=== PATIENT | male | born 1980 | race Two or more races ===

== ENCOUNTER → 2017-04-21 | Outpatient (CLI) | payer MEDICARE, OTHER | END | disposition home or self-care (01) | LOC: CFH 10:29 | PROVIDERS: ATTEND Family Medicine | DX: R29.898 Other symptoms and signs involving the musculoskeletal system (principal) | CPT/HCPCS: 72100 ==

== ENCOUNTER 2017-08-02 10:29 | Emergency (ER) | payer MEDICARE, OTHER ==
[~2017-08-02] VITALS: Ht 172.7 cm; Wt 119.9 kg
[2017-08-02] MEDS ORDERED: ALBUTEROL/IPRATROPIUM 2.5MG/0.5MG, 3 ML NPPB ONE (11:30)
[2017-08-02 11:44] LABS: BASOPHILS # (AUTO) 0.01 x10^3/uL (0-0.1); BASOPHILS % (AUTO) 0 % (0-1); EOSINOPHILS % (AUTO) 3 % (1-7); LYMPHOCYTES # (AUTO) 0.53 x10^3/uL (1-3.4); LYMPHOCYTES % (AUTO) 5 % (22-44); MD NO; MEAN CORPUSCULAR HEMOGLOBIN 26.9 pg (27.5-34.5); MEAN CORPUSCULAR HGB CONC 32.7 g/dL (33.2-36.2); MEAN CORPUSCULAR VOLUME 82.4 fL (81-97); MEAN PLATELET VOLUME 7.7 fL (7.4-10.4); MONOCYTES # (AUTO) 0.76 x10^3/uL (0.2-0.8); MONOCYTES % (AUTO) 7 % (2-9); NEUTROPHILS # (AUTO) 9.55 x10^3/uL (1.8-6.8); NEUTROPHILS % (AUTO) 86 % (42-75); PLATELET COUNT 314 x10^3/uL (130-400); RED BLOOD COUNT 6.13 x10^6/uL (4.38-5.82); RED CELL DISTRIBUTION WIDTH 15.9 % (9.4-14.8)
[2017-08-02 11:56] LABS: ANION GAP 4 mmol/L (5-15); CHLORIDE 106 mmol/L (98-107)
[2017-08-02 12:38] VITALS: BP 167/94
== END 2017-08-02 12:39 | disposition home or self-care (01) ==
LOC: ED 10:54
DX: H66.012 Acute suppurative otitis media with spontaneous rupture of ear drum, left ear (principal); J02.9 Acute pharyngitis, unspecified; J00 Acute nasopharyngitis [common cold]; I12.9 Hypertensive chronic kidney disease with stage 1 through stage 4 chronic kidney disease, or unspecified chronic kidney disease; N18.9 Chronic kidney disease, unspecified; Z99.2 Dependence on renal dialysis
CPT/HCPCS: 36415; 71046; 80048; 82040; 83880; 85025; 93005; 99285

== ENCOUNTER 2017-08-05 04:11 | Inpatient (IN) | payer MEDICARE, OTHER ==
[~2017-08-05] VITALS: Ht 172.7 cm; Wt 119.7 kg
[2017-08-05] MEDS ORDERED: ALBUTEROL/IPRATROPIUM 2.5MG/0.5MG, 3 ML ONE ×2 (04:43→07:44)
[2017-08-05] MEDS ORDERED: ALBUTEROL/IPRATROPIUM 2.5MG/0.5MG, 3 ML NPPB ONE ×2 (05:00→07:30)
[2017-08-05 06:35] LABS: BASOPHILS # (AUTO) 0.01 x10^3/uL (0-0.1); BASOPHILS % (AUTO) 0 % (0-1); EOSINOPHILS % (AUTO) 2 % (1-7); LYMPHOCYTES # (AUTO) 0.97 x10^3/uL (1-3.4); LYMPHOCYTES % (AUTO) 8 % (22-44); MD NO; MEAN CORPUSCULAR HEMOGLOBIN 27.4 pg (27.5-34.5); MEAN CORPUSCULAR HGB CONC 33.1 g/dL (33.2-36.2); MEAN CORPUSCULAR VOLUME 82.9 fL (81-97); MEAN PLATELET VOLUME 7.8 fL (7.4-10.4); MONOCYTES # (AUTO) 0.22 x10^3/uL (0.2-0.8); MONOCYTES % (AUTO) 2 % (2-9); NEUTROPHILS # (AUTO) 10.14 x10^3/uL (1.8-6.8); NEUTROPHILS % (AUTO) 88 % (42-75); PLATELET COUNT 302 x10^3/uL (130-400); RED BLOOD COUNT 5.82 x10^6/uL (4.38-5.82); RED CELL DISTRIBUTION WIDTH 16.1 % (9.4-14.8)
[2017-08-05] MEDS ORDERED: SODIUM CHLORIDE FLUSH 10ML SYR IVF ONE (07:30)
[2017-08-05 10:27] LABS: ANION GAP 6 mmol/L (5-15); CALCIUM 9.1 mg/dL (8.5-10.1); CHLORIDE 110 mmol/L (98-107); CREATININE 2.14 mg/dL (0.7-1.3)
[2017-08-05] MEDS ORDERED: TACR1CAP4 PO (10:43)
[2017-08-05] MEDS ORDERED: PANT40TA3 PO (10:43)
[2017-08-05] MEDS ORDERED: DOCU100C33 PO (10:43)
[2017-08-05] MEDS ORDERED: LOSA25TA5 PO (10:43)
[2017-08-05] MEDS ORDERED: MULT1TAB60 PO (10:43)
[2017-08-05] MEDS ORDERED: CHOL10002 PO (10:43)
[2017-08-05] MEDS ORDERED: FURO40TA6 PO (10:43)
[2017-08-05] MEDS ORDERED: MAGN400T7 PO (10:43)
[2017-08-05] MEDS ORDERED: PRED5TAB PO (10:43)
[2017-08-05] MEDS ORDERED: MYCO250C4 PO (10:43)
[2017-08-05] MEDS ORDERED: ASPI-496 PO (10:43)
[2017-08-05] MEDS ORDERED: CEFD300C37 PO (10:44)
[2017-08-05] MEDS ORDERED: [UNRECOGNIZED DRUG - OTHER] EACH EAR (10:47)
[2017-08-05 11:04] VITALS: BP 192/81
[2017-08-05] MEDS ORDERED: ONDANSETRON ODT 4 MG PO PRN (12:00)
[2017-08-05] MEDS ORDERED: FUROSEMIDE 40 MG TABLET PO SCH (12:00)
[2017-08-05] MEDS: HEPARIN 5,000 UNITS/ML, 1ML SQ SCH ×2 (12:00→20:00)
[2017-08-05] MEDS ORDERED: ONDANSETRON 2MG/ML, 2ML IVPush PRN (12:00)
[2017-08-05] MEDS: SODIUM CHLORIDE NASAL SPRAY 45ML BOTTLE NAS SCH ×2 (12:00→21:00)
[2017-08-05] MEDS: FLUTICASONE NASAL SPRAY 16GM NAS SCH ×2 (12:00→21:00)
[2017-08-05] MEDS ORDERED: hydrALAzine 20 MG/ML, 1ML IV PRN (12:00)
[2017-08-05] MEDS: GUAIFENESIN 200 MG TABLET PO SCH ×3 (12:00→21:05)
[2017-08-05] MEDS ORDERED: DOCUSATE 100 MG CAPSULE PO PRN (12:00)
[2017-08-05] MEDS: D5%-0.45% NACL 1,000 ML IV SCH (12:33)
[2017-08-05] MEDS: TACROLIMUS 1 MG CAPSULE PO SCH ×2 (12:35→21:05)
[2017-08-05] MEDS: ASPIRIN 81 MG TABLET EC PO SCH (12:37)
[2017-08-05] MEDS: DOCUSATE 100 MG CAPSULE PO SCH ×2 (12:37→21:00)
[2017-08-05] MEDS: LOSARTAN 25MG TABLET PO SCH (12:38)
[2017-08-05] MEDS: MULTIVITAMIN 1 TABLET PO SCH (12:38)
[2017-08-05] MEDS: CHOLECALCIFEROL 1,000 UNIT TABLET PO SCH (12:38)
[2017-08-05] MEDS: MAGNESIUM OXIDE 400 MG TABLET PO SCH ×2 (12:38→21:05)
[2017-08-05] MEDS: methylPREDNISolone SOD SUCC 40 MG/ML IV SCH ×2 (12:39→21:06)
[2017-08-05] MEDS ORDERED: PHARMACY MAY ADJ FOR RENAL FX MC PRN (13:00)
[2017-08-05] MEDS ORDERED: ALBUTEROL SULFATE 2.5 MG/3 ML ONE (13:22)
[2017-08-05 13:24] LABS: TROPONIN I < 0.015 ng/mL (0.000-0.045)
[2017-08-05] MEDS ORDERED: MAGNESIUM SULFATE PMX 4GM/100M 100 ML IV ONE (14:00)
[2017-08-05] MEDS ORDERED: ALBUTEROL SULFATE 2.5 MG/3 ML NPPB PRN (14:00)
[2017-08-05 14:30] VITALS: BP 176/84
[2017-08-05 16:44] VITALS: BP 162/90
[2017-08-05] MEDS: CEFDINIR 300 MG CAPSULE PO SCH ×2 (17:04→21:04)
[2017-08-05] MEDS ORDERED: NEOM10DR37 EACH EAR (17:30)
[2017-08-05 17:37] LABS: TROPONIN I < 0.015 ng/mL (0.000-0.045)
[2017-08-05 17:57] LABS: MICROSCOPIC NOT IND
[2017-08-05 18:04] LABS: CULTURE INDICATED? NO
[2017-08-05 19:17] VITALS: BP 151/86
[2017-08-05] MEDS ORDERED: NEO/POLY/HC EAR SUSP 10ML EACH EAR SCH (21:00)
[2017-08-05] MEDS: NEO/POLY/HC EAR SUSP 10ML EACH EAR SCH (21:00)
[2017-08-05] MEDS: PANTOPROZOLE 40MG TABLET PO SCH (21:05)
[2017-08-05] MEDS: ACETAMINOPHEN 325 MG TABLET PO PRN (21:20)
[2017-08-06] MEDS: D5%-0.45% NACL 1,000 ML IV SCH (01:02)
[2017-08-06 01:46] VITALS: BP 153/83
[2017-08-06] MEDS: ALBUTEROL/IPRATROPIUM 2.5MG/0.5MG, 3 ML HHN SCH ×3 (03:00→23:00)
[2017-08-06] MEDS: HEPARIN 5,000 UNITS/ML, 1ML SQ SCH ×3 (04:00→20:00)
[2017-08-06] MEDS: methylPREDNISolone SOD SUCC 40 MG/ML IV SCH ×3 (05:02→20:24)
[2017-08-06] MEDS: GUAIFENESIN 200 MG TABLET PO SCH ×4 (05:02→20:25)
[2017-08-06 05:30] LABS: BASOPHILS # (AUTO) 0.01 x10^3/uL (0-0.1); BASOPHILS % (AUTO) 0 % (0-1); EOSINOPHILS % (AUTO) 0 % (1-7); LYMPHOCYTES # (AUTO) 0.86 x10^3/uL (1-3.4); LYMPHOCYTES % (AUTO) 5 % (22-44); MD NO; MEAN CORPUSCULAR HEMOGLOBIN 27.6 pg (27.5-34.5); MEAN CORPUSCULAR HGB CONC 33.3 g/dL (33.2-36.2); MEAN CORPUSCULAR VOLUME 82.9 fL (81-97); MONOCYTES # (AUTO) 0.23 x10^3/uL (0.2-0.8); MONOCYTES % (AUTO) 1 % (2-9); NEUTROPHILS # (AUTO) 15.32 x10^3/uL (1.8-6.8); NEUTROPHILS % (AUTO) 93 % (42-75); PLATELET COUNT 311 x10^3/uL (130-400); RED BLOOD COUNT 5.94 x10^6/uL (4.38-5.82); RED CELL DISTRIBUTION WIDTH 15.9 % (9.4-14.8)
[2017-08-06 05:36] LABS: CHLORIDE 108 mmol/L (98-107)
[2017-08-06 05:40] LABS: ANION GAP 11 mmol/L (5-15)
[2017-08-06 07:36] VITALS: BP 154/80
[2017-08-06] MEDS: TACROLIMUS 1 MG CAPSULE PO SCH ×2 (08:47→20:26)
[2017-08-06] MEDS: ASPIRIN 81 MG TABLET EC PO SCH (08:48)
[2017-08-06] MEDS: PANTOPROZOLE 40MG TABLET PO SCH ×2 (08:48→20:25)
[2017-08-06] MEDS: CHOLECALCIFEROL 1,000 UNIT TABLET PO SCH (08:48)
[2017-08-06] MEDS: FUROSEMIDE 40 MG TABLET PO SCH (08:48)
[2017-08-06] MEDS: LOSARTAN 25MG TABLET PO SCH (08:48)
[2017-08-06] MEDS: CEFDINIR 300 MG CAPSULE PO SCH ×2 (08:48→20:26)
[2017-08-06] MEDS: NEO/POLY/HC EAR SUSP 10ML EACH EAR SCH ×2 (08:49→20:26)
[2017-08-06] MEDS: MULTIVITAMIN 1 TABLET PO SCH (08:49)
[2017-08-06] MEDS: MAGNESIUM OXIDE 400 MG TABLET PO SCH ×2 (08:49→20:26)
[2017-08-06] MEDS: FLUTICASONE NASAL SPRAY 16GM NAS SCH ×2 (08:50→21:06)
[2017-08-06] MEDS: SODIUM CHLORIDE NASAL SPRAY 45ML BOTTLE NAS SCH ×2 (08:50→21:06)
[2017-08-06] MEDS: DOCUSATE 100 MG CAPSULE PO SCH ×2 (09:03→20:26)
[2017-08-06 10:32] LABS: HEMOGLOBIN A1C 5.9 % (4.2-6.3)
[2017-08-06 13:12] VITALS: BP 176/82
[2017-08-06 19:22] VITALS: BP 159/83
[2017-08-06] MEDS ORDERED: LOSARTAN 25MG TABLET PO SCH (21:00)
[2017-08-07 02:01] VITALS: BP 154/64
[2017-08-07] MEDS: ALBUTEROL/IPRATROPIUM 2.5MG/0.5MG, 3 ML HHN SCH ×3 (03:24→21:22)
[2017-08-07] MEDS: HEPARIN 5,000 UNITS/ML, 1ML SQ SCH ×3 (04:00→20:00)
[2017-08-07] MEDS: methylPREDNISolone SOD SUCC 40 MG/ML IV SCH ×3 (05:07→21:10)
[2017-08-07] MEDS: GUAIFENESIN 200 MG TABLET PO SCH ×4 (05:08→21:00)
[2017-08-07 05:15] LABS: ANION GAP 9 mmol/L (5-15); CALCIUM 8.8 mg/dL (8.5-10.1); CHLORIDE 110 mmol/L (98-107)
[2017-08-07 05:33] LABS: MEAN CORPUSCULAR HGB CONC 32.6 g/dL (33.2-36.2); MEAN CORPUSCULAR VOLUME 82.9 fL (81-97); MEAN PLATELET VOLUME 7.8 fL (7.4-10.4); PLATELET COUNT 309 x10^3/uL (130-400); RED BLOOD COUNT 5.78 x10^6/uL (4.38-5.82); RED CELL DISTRIBUTION WIDTH 16.4 % (9.4-14.8)
[2017-08-07 06:18] LABS: BASOPHILS # (AUTO) 0.02 x10^3/uL (0-0.1); BASOPHILS % (AUTO) 0 % (0-1); EOSINOPHILS % (AUTO) 0 % (1-7); LYMPHOCYTES # (AUTO) 0.74 x10^3/uL (1-3.4); LYMPHOCYTES % (AUTO) 4 % (22-44); MD SCAN; MONOCYTES # (AUTO) 0.39 x10^3/uL (0.2-0.8); MONOCYTES % (AUTO) 2 % (2-9); NEUTROPHILS # (AUTO) 19.58 x10^3/uL (1.8-6.8); NEUTROPHILS % (AUTO) 95 % (42-75)
[2017-08-07 07:51] VITALS: BP 154/91
[2017-08-07] MEDS: MAGNESIUM OXIDE 400 MG TABLET PO SCH (08:16)
[2017-08-07] MEDS: CETIRIZINE 10 MG TABLET PO SCH (08:16)
[2017-08-07] MEDS: TACROLIMUS 1 MG CAPSULE PO SCH ×2 (08:17→21:10)
[2017-08-07] MEDS: MULTIVITAMIN 1 TABLET PO SCH (08:17)
[2017-08-07] MEDS: PANTOPROZOLE 40MG TABLET PO SCH ×2 (08:17→21:10)
[2017-08-07] MEDS: ASPIRIN 81 MG TABLET EC PO SCH (08:17)
[2017-08-07] MEDS: DOCUSATE 100 MG CAPSULE PO SCH ×2 (08:17→21:00)
[2017-08-07] MEDS: CHOLECALCIFEROL 1,000 UNIT TABLET PO SCH (08:17)
[2017-08-07] MEDS: CEFDINIR 300 MG CAPSULE PO SCH (08:17)
[2017-08-07] MEDS: FUROSEMIDE 40 MG TABLET PO SCH (08:17)
[2017-08-07] MEDS: NEO/POLY/HC EAR SUSP 10ML EACH EAR SCH ×2 (08:20→21:00)
[2017-08-07] MEDS: SODIUM CHLORIDE NASAL SPRAY 45ML BOTTLE NAS SCH ×2 (09:00→21:09)
[2017-08-07] MEDS: FLUTICASONE NASAL SPRAY 16GM NAS SCH ×2 (09:30→21:09)
[2017-08-07] MEDS ORDERED: SODIUM CHLORIDE 0.45% 1,000 ML IV SCH (10:00)
[2017-08-07] MEDS: SODIUM CHLORIDE 0.45% 1,000 ML IV SCH ×2 (11:07→20:00)
[2017-08-07 12:41] VITALS: BP 138/99
[2017-08-07 18:42] VITALS: BP 135/83
[2017-08-07] MEDS: ACETAMINOPHEN 325 MG TABLET PO PRN (21:36)
[2017-08-08] MEDS: ALBUTEROL/IPRATROPIUM 2.5MG/0.5MG, 3 ML HHN SCH ×4 (02:53→19:55)
[2017-08-08 02:56] VITALS: BP 134/87
[2017-08-08] MEDS: HEPARIN 5,000 UNITS/ML, 1ML SQ SCH ×3 (04:00→20:00)
[2017-08-08] MEDS: methylPREDNISolone SOD SUCC 40 MG/ML IV SCH ×2 (04:26→12:00)
[2017-08-08] MEDS: SODIUM CHLORIDE 0.45% 1,000 ML IV SCH (04:26)
[2017-08-08] MEDS: GUAIFENESIN 200 MG TABLET PO SCH ×4 (04:26→20:50)
[2017-08-08 07:05] VITALS: BP 142/94
[2017-08-08 07:20] LABS: MEAN CORPUSCULAR HGB CONC 32.5 g/dL (33.2-36.2); MEAN PLATELET VOLUME 7.7 fL (7.4-10.4); PLATELET COUNT 314 x10^3/uL (130-400); RED BLOOD COUNT 5.81 x10^6/uL (4.38-5.82); RED CELL DISTRIBUTION WIDTH 16.2 % (9.4-14.8)
[2017-08-08 07:31] LABS: ALBUMIN 3.6 g/dL (3.4-5.0); ANION GAP 9 mmol/L (5-15); CALCIUM 8.9 mg/dL (8.5-10.1); CHLORIDE 110 mmol/L (98-107); CREATININE 1.95 mg/dL (0.7-1.3)
[2017-08-08 07:36] LABS: BASOPHILS # (AUTO) 0.04 x10^3/uL (0-0.1); BASOPHILS % (AUTO) 0 % (0-1); EOSINOPHILS % (AUTO) 0 % (1-7); LYMPHOCYTES # (AUTO) 0.44 x10^3/uL (1-3.4); LYMPHOCYTES % (AUTO) 2 % (22-44); MD SCAN; MONOCYTES # (AUTO) 0.31 x10^3/uL (0.2-0.8); MONOCYTES % (AUTO) 2 % (2-9); NEUTROPHILS # (AUTO) 19.41 x10^3/uL (1.8-6.8); NEUTROPHILS % (AUTO) 96 % (42-75)
[2017-08-08] MEDS: NEO/POLY/HC EAR SUSP 10ML EACH EAR SCH ×3 (08:22→20:51)
[2017-08-08] MEDS: ASPIRIN 81 MG TABLET EC PO SCH (08:23)
[2017-08-08] MEDS: DOCUSATE 100 MG CAPSULE PO SCH ×2 (08:23→20:53)
[2017-08-08] MEDS: MULTIVITAMIN 1 TABLET PO SCH (08:23)
[2017-08-08] MEDS: PANTOPROZOLE 40MG TABLET PO SCH ×2 (08:24→20:53)
[2017-08-08] MEDS: CHOLECALCIFEROL 1,000 UNIT TABLET PO SCH (08:24)
[2017-08-08] MEDS: TACROLIMUS 1 MG CAPSULE PO SCH ×2 (08:24→20:53)
[2017-08-08] MEDS: CETIRIZINE 10 MG TABLET PO SCH (08:24)
[2017-08-08] MEDS: FLUTICASONE NASAL SPRAY 16GM NAS SCH (09:23)
[2017-08-08] MEDS: SODIUM CHLORIDE NASAL SPRAY 45ML BOTTLE NAS SCH (09:23)
[2017-08-08 13:49] VITALS: BP 132/98
[2017-08-08 18:39] VITALS: BP 132/83
[2017-08-09] MEDS: SODIUM CHLORIDE NASAL SPRAY 45ML BOTTLE NAS SCH ×3 (00:32→20:46)
[2017-08-09] MEDS: FLUTICASONE NASAL SPRAY 16GM NAS SCH ×3 (00:32→20:46)
[2017-08-09] MEDS: methylPREDNISolone SOD SUCC 40 MG/ML IV SCH ×2 (00:33→08:04)
[2017-08-09 01:05] VITALS: BP 124/84
[2017-08-09] MEDS: ALBUTEROL/IPRATROPIUM 2.5MG/0.5MG, 3 ML HHN SCH ×4 (02:04→20:15)
[2017-08-09] MEDS: HEPARIN 5,000 UNITS/ML, 1ML SQ SCH ×3 (03:07→20:00)
[2017-08-09] MEDS: GUAIFENESIN 200 MG TABLET PO SCH ×4 (03:07→20:40)
[2017-08-09 06:48] VITALS: BP 140/95
[2017-08-09] MEDS: FUROSEMIDE 20 MG/2 ML IV SCH (07:48)
[2017-08-09] MEDS ORDERED: FUROSEMIDE 40 MG/4 ML IV ONE (08:00)
[2017-08-09] MEDS: CHOLECALCIFEROL 1,000 UNIT TABLET PO SCH (08:07)
[2017-08-09] MEDS: CETIRIZINE 10 MG TABLET PO SCH (08:07)
[2017-08-09] MEDS: TACROLIMUS 1 MG CAPSULE PO SCH ×2 (08:07→20:41)
[2017-08-09] MEDS: DOCUSATE 100 MG CAPSULE PO SCH ×2 (08:07→20:40)
[2017-08-09] MEDS: ASPIRIN 81 MG TABLET EC PO SCH (08:07)
[2017-08-09] MEDS: MULTIVITAMIN 1 TABLET PO SCH (08:07)
[2017-08-09] MEDS: PANTOPROZOLE 40MG TABLET PO SCH ×2 (08:07→20:40)
[2017-08-09] MEDS: NEO/POLY/HC EAR SUSP 10ML EACH EAR SCH ×2 (08:08→20:47)
[2017-08-09 08:53] LABS: MEAN CORPUSCULAR HGB CONC 32.6 g/dL (33.2-36.2); MEAN CORPUSCULAR VOLUME 82.8 fL (81-97); MEAN PLATELET VOLUME 7.5 fL (7.4-10.4); PLATELET COUNT 324 x10^3/uL (130-400); RED BLOOD COUNT 6.03 x10^6/uL (4.38-5.82); RED CELL DISTRIBUTION WIDTH 16.2 % (9.4-14.8)
[2017-08-09 09:02] LABS: ANION GAP 12 mmol/L (5-15); CALCIUM 9.5 mg/dL (8.5-10.1); CHLORIDE 107 mmol/L (98-107)
[2017-08-09 09:07] LABS: BASOPHILS % (AUTO) 0 % (0-1); EOSINOPHILS % (AUTO) 0 % (1-7); LYMPHOCYTES # (AUTO) 0.47 x10^3/uL (1-3.4); LYMPHOCYTES % (AUTO) 2 % (22-44); MD SCAN; MONOCYTES % (AUTO) 3 % (2-9); NEUTROPHILS # (AUTO) 18.74 x10^3/uL (1.8-6.8); NEUTROPHILS % (AUTO) 95 % (42-75)
[2017-08-09] MEDS ORDERED: MAGNESIUM SULFATE PMX 4GM/100M 100 ML IV ONE (11:00)
[2017-08-09] MEDS ORDERED: SODIUM PHOSPHATE 4 MEQ/ML IV SCH (11:30)
[2017-08-09] MEDS ORDERED: SODIUM PHOSPHATE 30 MMOL in SODIUM CHLORIDE 0.9% 500 ML IV ONE (12:00)
[2017-08-09] MEDS ORDERED: FUROSEMIDE 20 MG/2 ML IV ONE (17:00)
[2017-08-09 18:10] VITALS: BP 134/89
[2017-08-09 18:51] VITALS: BP 127/90
[2017-08-10] MEDS: methylPREDNISolone SOD SUCC 40 MG/ML IV SCH ×4 (00:34→23:38)
[2017-08-10 01:06] VITALS: BP 126/88
[2017-08-10] MEDS: HEPARIN 5,000 UNITS/ML, 1ML SQ SCH ×3 (03:04→20:00)
[2017-08-10] MEDS: ALBUTEROL/IPRATROPIUM 2.5MG/0.5MG, 3 ML HHN SCH ×4 (03:30→20:20)
[2017-08-10] MEDS: GUAIFENESIN 200 MG TABLET PO SCH ×4 (05:57→20:39)
[2017-08-10 07:33] VITALS: BP 138/88
[2017-08-10] MEDS: NEO/POLY/HC EAR SUSP 10ML EACH EAR SCH ×2 (09:00→20:39)
[2017-08-10] MEDS: FUROSEMIDE 20 MG/2 ML IV SCH (10:05)
[2017-08-10] MEDS: TACROLIMUS 1 MG CAPSULE PO SCH ×2 (10:08→20:40)
[2017-08-10] MEDS: CHOLECALCIFEROL 1,000 UNIT TABLET PO SCH (10:08)
[2017-08-10] MEDS: PANTOPROZOLE 40MG TABLET PO SCH ×2 (10:08→20:40)
[2017-08-10] MEDS: MULTIVITAMIN 1 TABLET PO SCH (10:08)
[2017-08-10] MEDS: DOCUSATE 100 MG CAPSULE PO SCH ×2 (10:08→20:39)
[2017-08-10] MEDS: CETIRIZINE 10 MG TABLET PO SCH (10:08)
[2017-08-10] MEDS: SODIUM CHLORIDE NASAL SPRAY 45ML BOTTLE NAS SCH ×2 (10:09→20:39)
[2017-08-10] MEDS: ASPIRIN 81 MG TABLET EC PO SCH (10:09)
[2017-08-10] MEDS: FLUTICASONE NASAL SPRAY 16GM NAS SCH ×2 (10:09→20:38)
[2017-08-10 13:57] VITALS: BP 128/87
[2017-08-10 19:49] VITALS: BP 116/83
[2017-08-10] MEDS: LOSARTAN 25MG TABLET PO SCH (21:50)
[2017-08-11 02:00] VITALS: BP 109/68
[2017-08-11] MEDS: ALBUTEROL/IPRATROPIUM 2.5MG/0.5MG, 3 ML HHN SCH ×4 (02:37→20:49)
[2017-08-11] MEDS: HEPARIN 5,000 UNITS/ML, 1ML SQ SCH ×3 (03:43→20:00)
[2017-08-11 05:06] LABS: MEAN CORPUSCULAR HEMOGLOBIN 27.1 pg (27.5-34.5); MEAN CORPUSCULAR HGB CONC 32.7 g/dL (33.2-36.2); MEAN CORPUSCULAR VOLUME 83.1 fL (81-97); MEAN PLATELET VOLUME 7.6 fL (7.4-10.4); PLATELET COUNT 300 x10^3/uL (130-400); RED BLOOD COUNT 5.93 x10^6/uL (4.38-5.82); RED CELL DISTRIBUTION WIDTH 16.5 % (9.4-14.8)
[2017-08-11 05:07] LABS: ALBUMIN 3.5 g/dL (3.4-5.0); ANION GAP 10 mmol/L (5-15); CALCIUM 7.9 mg/dL (8.5-10.1); CHLORIDE 107 mmol/L (98-107); CREATININE 1.95 mg/dL (0.7-1.3)
[2017-08-11] MEDS: GUAIFENESIN 200 MG TABLET PO SCH ×4 (05:19→21:07)
[2017-08-11 05:48] LABS: BASOPHILS # (AUTO) 0.05 x10^3/uL (0-0.1); BASOPHILS % (AUTO) 0 % (0-1); EOSINOPHILS % (AUTO) 0 % (1-7); LYMPHOCYTES # (AUTO) 0.47 x10^3/uL (1-3.4); LYMPHOCYTES % (AUTO) 3 % (22-44); MD SCAN; MONOCYTES % (AUTO) 3 % (2-9); NEUTROPHILS # (AUTO) 15.14 x10^3/uL (1.8-6.8); NEUTROPHILS % (AUTO) 94 % (42-75)
[2017-08-11 07:26] VITALS: BP 120/81
[2017-08-11] MEDS ORDERED: SODIUM PHOSPHATE 4 MEQ/ML IV SCH (07:30)
[2017-08-11] MEDS ORDERED: SODIUM PHOSPHATE 30 MMOL in SODIUM CHLORIDE 0.9% 500 ML IV ONE (07:30)
[2017-08-11] MEDS: ASPIRIN 81 MG TABLET EC PO SCH (10:56)
[2017-08-11] MEDS: TACROLIMUS 1 MG CAPSULE PO SCH ×2 (10:56→21:08)
[2017-08-11] MEDS: CHOLECALCIFEROL 1,000 UNIT TABLET PO SCH (10:57)
[2017-08-11] MEDS: DOCUSATE 100 MG CAPSULE PO SCH ×2 (10:57→21:08)
[2017-08-11] MEDS: CETIRIZINE 10 MG TABLET PO SCH (10:57)
[2017-08-11] MEDS: LOSARTAN 25MG TABLET PO SCH (10:58)
[2017-08-11] MEDS: MULTIVITAMIN 1 TABLET PO SCH (10:58)
[2017-08-11] MEDS: PANTOPROZOLE 40MG TABLET PO SCH ×2 (10:58→21:08)
[2017-08-11] MEDS: FLUTICASONE NASAL SPRAY 16GM NAS SCH ×2 (10:59→21:07)
[2017-08-11] MEDS: SODIUM CHLORIDE NASAL SPRAY 45ML BOTTLE NAS SCH ×2 (10:59→21:06)
[2017-08-11] MEDS: NEO/POLY/HC EAR SUSP 10ML EACH EAR SCH ×2 (11:00→21:00)
[2017-08-11] MEDS: methylPREDNISolone SOD SUCC 40 MG/ML IV SCH ×2 (11:33→23:35)
[2017-08-11 13:37] VITALS: BP 120/86
[2017-08-11 19:29] VITALS: BP 120/77
[2017-08-12 02:29] VITALS: BP 127/86
[2017-08-12] MEDS: ALBUTEROL/IPRATROPIUM 2.5MG/0.5MG, 3 ML HHN SCH ×4 (02:47→21:35)
[2017-08-12] MEDS: HEPARIN 5,000 UNITS/ML, 1ML SQ SCH ×3 (04:00→20:00)
[2017-08-12] MEDS: GUAIFENESIN 200 MG TABLET PO SCH ×4 (05:42→22:16)
[2017-08-12 08:00] VITALS: BP 125/84
[2017-08-12] MEDS: FUROSEMIDE 40 MG/4 ML IV SCH (08:58)
[2017-08-12] MEDS: ASPIRIN 81 MG TABLET EC PO SCH (08:59)
[2017-08-12] MEDS: PANTOPROZOLE 40MG TABLET PO SCH ×2 (08:59→22:16)
[2017-08-12] MEDS: TACROLIMUS 1 MG CAPSULE PO SCH ×2 (08:59→22:16)
[2017-08-12] MEDS: MULTIVITAMIN 1 TABLET PO SCH (08:59)
[2017-08-12] MEDS: CETIRIZINE 10 MG TABLET PO SCH (08:59)
[2017-08-12] MEDS: DOCUSATE 100 MG CAPSULE PO SCH ×2 (09:00→22:16)
[2017-08-12] MEDS: CHOLECALCIFEROL 1,000 UNIT TABLET PO SCH (09:00)
[2017-08-12] MEDS: NEO/POLY/HC EAR SUSP 10ML EACH EAR SCH ×3 (09:00→22:17)
[2017-08-12] MEDS: LOSARTAN 25MG TABLET PO SCH (09:00)
[2017-08-12] MEDS: FLUTICASONE NASAL SPRAY 16GM NAS SCH ×2 (09:01→22:16)
[2017-08-12] MEDS: SODIUM CHLORIDE NASAL SPRAY 45ML BOTTLE NAS SCH ×2 (09:01→22:17)
[2017-08-12 09:08] LABS: MEAN CORPUSCULAR HEMOGLOBIN 27.2 pg (27.5-34.5); MEAN CORPUSCULAR HGB CONC 32.7 g/dL (33.2-36.2); MEAN CORPUSCULAR VOLUME 83.2 fL (81-97); MEAN PLATELET VOLUME 7.2 fL (7.4-10.4); PLATELET COUNT 275 x10^3/uL (130-400); RED BLOOD COUNT 5.85 x10^6/uL (4.38-5.82); RED CELL DISTRIBUTION WIDTH 16.8 % (9.4-14.8)
[2017-08-12 09:18] LABS: ALBUMIN 3.5 g/dL (3.4-5.0); ANION GAP 10 mmol/L (5-15); CALCIUM 7.9 mg/dL (8.5-10.1); CHLORIDE 104 mmol/L (98-107); CREATININE 2.01 mg/dL (0.7-1.3)
[2017-08-12 09:44] LABS: MD YES
[2017-08-12 09:47] LABS: <PLATELET ESTIMATE> ADEQUATE; <PLT MORPHOLOGY> NORMAL PLT MORPH; <RBC MORPHOLOGY> NORMAL; LYMPH#(MANUAL) 2.46 x10^3/uL (1-3.4); LYMPHS% (MANUAL) 14 % (22-44); METAMYELOCYTES# (MANUAL) 0.35 x10^3/uL (0-0); METAMYELOCYTES% (MANUAL) 2 % (0-1); MONOS#(MANUAL) 0.35 x10^3/uL (0.3-2.7); MONOS% (MANUAL) 2 % (2-9); SEG#(MANUAL) 14.43 x10^3/uL (1.8-6.8); SEGS% (MANUAL) 82 % (42-75)
[2017-08-12] MEDS: methylPREDNISolone SOD SUCC 40 MG/ML IV SCH (13:40)
[2017-08-12 14:00] VITALS: BP 107/73
[2017-08-12 20:23] VITALS: BP 114/79
[2017-08-13] MEDS: ACETAMINOPHEN 325 MG TABLET PO PRN (00:38)
[2017-08-13] MEDS: methylPREDNISolone SOD SUCC 40 MG/ML IV SCH ×2 (00:38→11:43)
[2017-08-13 01:56] VITALS: BP 122/79
[2017-08-13] MEDS: ALBUTEROL/IPRATROPIUM 2.5MG/0.5MG, 3 ML HHN SCH ×5 (03:00→21:12)
[2017-08-13] MEDS: HEPARIN 5,000 UNITS/ML, 1ML SQ SCH ×3 (04:00→20:00)
[2017-08-13] MEDS: GUAIFENESIN 200 MG TABLET PO SCH ×5 (06:36→22:29)
[2017-08-13 08:18] VITALS: BP 141/89
[2017-08-13] MEDS: FLUTICASONE NASAL SPRAY 16GM NAS SCH ×2 (08:34→22:27)
[2017-08-13] MEDS: FUROSEMIDE 40 MG/4 ML IV SCH (08:34)
[2017-08-13] MEDS: NEO/POLY/HC EAR SUSP 10ML EACH EAR SCH ×2 (08:34→21:00)
[2017-08-13] MEDS: SODIUM CHLORIDE NASAL SPRAY 45ML BOTTLE NAS SCH ×2 (08:34→22:27)
[2017-08-13] MEDS: LOSARTAN 25MG TABLET PO SCH (08:35)
[2017-08-13] MEDS: CHOLECALCIFEROL 1,000 UNIT TABLET PO SCH (08:35)
[2017-08-13] MEDS: TACROLIMUS 1 MG CAPSULE PO SCH ×2 (08:35→22:28)
[2017-08-13] MEDS: MULTIVITAMIN 1 TABLET PO SCH (08:35)
[2017-08-13] MEDS: ASPIRIN 81 MG TABLET EC PO SCH (08:35)
[2017-08-13] MEDS: PANTOPROZOLE 40MG TABLET PO SCH ×2 (08:35→22:28)
[2017-08-13] MEDS: DOCUSATE 100 MG CAPSULE PO SCH ×2 (08:35→22:28)
[2017-08-13] MEDS: CETIRIZINE 10 MG TABLET PO SCH (08:35)
[2017-08-13 11:10] LABS: MEAN CORPUSCULAR HEMOGLOBIN 26.9 pg (27.5-34.5); MEAN CORPUSCULAR HGB CONC 32.3 g/dL (33.2-36.2); MEAN CORPUSCULAR VOLUME 83.4 fL (81-97); MEAN PLATELET VOLUME 7.5 fL (7.4-10.4); PLATELET COUNT 273 x10^3/uL (130-400); RED CELL DISTRIBUTION WIDTH 16.8 % (9.4-14.8)
[2017-08-13 11:19] LABS: ALBUMIN 3.7 g/dL (3.4-5.0); ANION GAP 10 mmol/L (5-15); CALCIUM 8.6 mg/dL (8.5-10.1); CHLORIDE 103 mmol/L (98-107); CREATININE 1.96 mg/dL (0.7-1.3)
[2017-08-13 11:58] LABS: MD YES
[2017-08-13 12:07] LABS: BAND#(MANUAL) 0.76 x10^3/uL; BANDS%(MANUAL) 4 % (0-7); LYMPH#(MANUAL) 0.95 x10^3/uL (1-3.4); LYMPHS% (MANUAL) 5 % (22-44); MONOS#(MANUAL) 0.38 x10^3/uL (0.3-2.7); MONOS% (MANUAL) 2 % (2-9)
[2017-08-13 12:08] LABS: <PLATELET ESTIMATE> ADEQUATE; <PLT MORPHOLOGY> NORMAL PLT MORPH; <RBC MORPHOLOGY> NORMAL; METAMYELOCYTES# (MANUAL) 0.19 x10^3/uL (0-0); METAMYELOCYTES% (MANUAL) 1 % (0-1); SEG#(MANUAL) 16.63 x10^3/uL (1.8-6.8); SEGS% (MANUAL) 88 % (42-75)
[2017-08-13 12:49] VITALS: BP 112/80
[2017-08-13 20:06] VITALS: BP 130/91
[2017-08-14] MEDS: methylPREDNISolone SOD SUCC 40 MG/ML IV SCH ×2 (01:35→11:19)
[2017-08-14 02:08] VITALS: BP 129/88
[2017-08-14] MEDS: ALBUTEROL/IPRATROPIUM 2.5MG/0.5MG, 3 ML HHN SCH ×3 (03:00→21:21)
[2017-08-14] MEDS: HEPARIN 5,000 UNITS/ML, 1ML SQ SCH ×3 (04:00→20:00)
[2017-08-14] MEDS: GUAIFENESIN 200 MG TABLET PO SCH ×4 (06:07→22:01)
[2017-08-14] MEDS: NEO/POLY/HC EAR SUSP 10ML EACH EAR SCH ×2 (07:25→21:00)
[2017-08-14] MEDS: FUROSEMIDE 40 MG/4 ML IV SCH (07:57)
[2017-08-14] MEDS: FLUTICASONE NASAL SPRAY 16GM NAS SCH ×2 (07:57→22:02)
[2017-08-14] MEDS: LOSARTAN 25MG TABLET PO SCH (07:57)
[2017-08-14] MEDS: MULTIVITAMIN 1 TABLET PO SCH (07:58)
[2017-08-14] MEDS: SODIUM CHLORIDE NASAL SPRAY 45ML BOTTLE NAS SCH ×2 (07:58→22:02)
[2017-08-14] MEDS: CHOLECALCIFEROL 1,000 UNIT TABLET PO SCH (07:58)
[2017-08-14] MEDS: TACROLIMUS 1 MG CAPSULE PO SCH ×2 (07:58→22:01)
[2017-08-14] MEDS: CETIRIZINE 10 MG TABLET PO SCH (07:58)
[2017-08-14] MEDS: ASPIRIN 81 MG TABLET EC PO SCH (07:58)
[2017-08-14] MEDS: DOCUSATE 100 MG CAPSULE PO SCH ×2 (07:58→22:00)
[2017-08-14] MEDS: PANTOPROZOLE 40MG TABLET PO SCH ×2 (07:58→22:01)
[2017-08-14 08:47] LABS: MEAN CORPUSCULAR HGB CONC 32.4 g/dL (33.2-36.2); MEAN CORPUSCULAR VOLUME 83.4 fL (81-97); MEAN PLATELET VOLUME 7.5 fL (7.4-10.4); PLATELET COUNT 281 x10^3/uL (130-400); RED BLOOD COUNT 6.24 x10^6/uL (4.38-5.82); RED CELL DISTRIBUTION WIDTH 16.7 % (9.4-14.8)
[2017-08-14 08:55] LABS: ALBUMIN 3.8 g/dL (3.4-5.0); ANION GAP 9 mmol/L (5-15); CALCIUM 8.5 mg/dL (8.5-10.1); CHLORIDE 103 mmol/L (98-107)
[2017-08-14 10:00] VITALS: BP 116/82
[2017-08-14 10:19] LABS: BASOPHILS # (AUTO) 0.06 x10^3/uL (0-0.1); BASOPHILS % (AUTO) 0 % (0-1); EOSINOPHILS # (AUTO) 0.01 x10^3/uL (0-0.4); EOSINOPHILS % (AUTO) 0 % (1-7); LYMPHOCYTES # (AUTO) 0.47 x10^3/uL (1-3.4); LYMPHOCYTES % (AUTO) 2 % (22-44); MD SCAN; MONOCYTES # (AUTO) 0.16 x10^3/uL (0.2-0.8); MONOCYTES % (AUTO) 1 % (2-9); NEUTROPHILS # (AUTO) 19.29 x10^3/uL (1.8-6.8); NEUTROPHILS % (AUTO) 97 % (42-75)
[2017-08-14 14:50] VITALS: BP 145/87
[2017-08-14 19:50] VITALS: BP 152/89
[2017-08-15] MEDS: HEPARIN 5,000 UNITS/ML, 1ML SQ SCH ×3 (01:36→20:00)
[2017-08-15] MEDS: ACETAMINOPHEN 325 MG TABLET PO PRN (01:38)
[2017-08-15 02:14] VITALS: BP 149/82
[2017-08-15 04:57] LABS: MEAN CORPUSCULAR HEMOGLOBIN 27.4 pg (27.5-34.5); MEAN CORPUSCULAR HGB CONC 32.6 g/dL (33.2-36.2); MEAN PLATELET VOLUME 7.6 fL (7.4-10.4); PLATELET COUNT 259 x10^3/uL (130-400); RED BLOOD COUNT 5.97 x10^6/uL (4.38-5.82); RED CELL DISTRIBUTION WIDTH 16.8 % (9.4-14.8)
[2017-08-15 05:09] LABS: ALBUMIN 3.3 g/dL (3.4-5.0); ANION GAP 9 mmol/L (5-15); CALCIUM 8.9 mg/dL (8.5-10.1); CHLORIDE 106 mmol/L (98-107); CREATININE 1.92 mg/dL (0.7-1.3)
[2017-08-15] MEDS: GUAIFENESIN 200 MG TABLET PO SCH ×4 (06:14→21:16)
[2017-08-15 06:16] LABS: BASOPHILS # (AUTO) 0.03 x10^3/uL (0-0.1); BASOPHILS % (AUTO) 0 % (0-1); EOSINOPHILS % (AUTO) 0 % (1-7); LYMPHOCYTES # (AUTO) 0.47 x10^3/uL (1-3.4); LYMPHOCYTES % (AUTO) 2 % (22-44); MD SCAN; MONOCYTES # (AUTO) 0.59 x10^3/uL (0.2-0.8); MONOCYTES % (AUTO) 3 % (2-9); NEUTROPHILS # (AUTO) 21.73 x10^3/uL (1.8-6.8); NEUTROPHILS % (AUTO) 95 % (42-75)
[2017-08-15 07:40] VITALS: BP 145/94
[2017-08-15] MEDS: FUROSEMIDE 40 MG/4 ML IV SCH (08:30)
[2017-08-15] MEDS: ASPIRIN 81 MG TABLET EC PO SCH (08:31)
[2017-08-15] MEDS: TACROLIMUS 1 MG CAPSULE PO SCH ×2 (08:31→21:16)
[2017-08-15] MEDS: LOSARTAN 25MG TABLET PO SCH (08:31)
[2017-08-15] MEDS: PANTOPROZOLE 40MG TABLET PO SCH ×2 (08:31→21:16)
[2017-08-15] MEDS: CETIRIZINE 10 MG TABLET PO SCH (08:31)
[2017-08-15] MEDS: CHOLECALCIFEROL 1,000 UNIT TABLET PO SCH (08:31)
[2017-08-15] MEDS: MULTIVITAMIN 1 TABLET PO SCH (08:32)
[2017-08-15] MEDS: DOCUSATE 100 MG CAPSULE PO SCH ×2 (08:32→21:16)
[2017-08-15] MEDS: NEO/POLY/HC EAR SUSP 10ML EACH EAR SCH ×2 (08:35→21:00)
[2017-08-15] MEDS: FLUTICASONE NASAL SPRAY 16GM NAS SCH ×2 (08:37→21:15)
[2017-08-15] MEDS: SODIUM CHLORIDE NASAL SPRAY 45ML BOTTLE NAS SCH ×2 (08:37→21:17)
[2017-08-15] MEDS: ALBUTEROL/IPRATROPIUM 2.5MG/0.5MG, 3 ML HHN SCH ×2 (10:40→20:40)
[2017-08-15 12:32] VITALS: BP 141/79
[2017-08-15 20:41] VITALS: BP 148/96
[2017-08-16 02:31] VITALS: BP 146/88
[2017-08-16] MEDS: ALBUTEROL/IPRATROPIUM 2.5MG/0.5MG, 3 ML HHN SCH ×4 (03:50→20:04)
[2017-08-16] MEDS: HEPARIN 5,000 UNITS/ML, 1ML SQ SCH ×3 (04:00→20:23)
[2017-08-16] MEDS: ACETAMINOPHEN 325 MG TABLET PO PRN (04:13)
[2017-08-16] MEDS: GUAIFENESIN 200 MG TABLET PO SCH ×5 (05:23→20:39)
[2017-08-16 05:34] LABS: ANION GAP 8 mmol/L (5-15); BASOPHILS # (AUTO) 0.01 x10^3/uL (0-0.1); BASOPHILS % (AUTO) 0 % (0-1); CALCIUM 8.6 mg/dL (8.5-10.1); CHLORIDE 107 mmol/L (98-107); CREATININE 1.61 mg/dL (0.7-1.3); EOSINOPHILS # (AUTO) 0.02 x10^3/uL (0-0.4); EOSINOPHILS % (AUTO) 0 % (1-7); LYMPHOCYTES # (AUTO) 1.22 x10^3/uL (1-3.4); LYMPHOCYTES % (AUTO) 7 % (22-44); MD NO; MEAN CORPUSCULAR HEMOGLOBIN 27.4 pg (27.5-34.5); MEAN CORPUSCULAR HGB CONC 32.4 g/dL (33.2-36.2); MEAN CORPUSCULAR VOLUME 84.5 fL (81-97); MEAN PLATELET VOLUME 7.8 fL (7.4-10.4); MONOCYTES # (AUTO) 1.12 x10^3/uL (0.2-0.8); MONOCYTES % (AUTO) 7 % (2-9); NEUTROPHILS % (AUTO) 86 % (42-75); PLATELET COUNT 239 x10^3/uL (130-400); RED BLOOD COUNT 5.53 x10^6/uL (4.38-5.82); RED CELL DISTRIBUTION WIDTH 16.7 % (9.4-14.8)
[2017-08-16 07:39] VITALS: BP 145/90
[2017-08-16] MEDS ORDERED: MAGNESIUM SULFATE PMX 2GM/50ML 50 ML IV ONE (08:00)
[2017-08-16] MEDS: CHOLECALCIFEROL 1,000 UNIT TABLET PO SCH (08:22)
[2017-08-16] MEDS: PANTOPROZOLE 40MG TABLET PO SCH (08:22)
[2017-08-16] MEDS: ASPIRIN 81 MG TABLET EC PO SCH (08:22)
[2017-08-16] MEDS: CETIRIZINE 10 MG TABLET PO SCH (08:22)
[2017-08-16] MEDS: FUROSEMIDE 40 MG/4 ML IV SCH (08:22)
[2017-08-16] MEDS: LOSARTAN 25MG TABLET PO SCH (08:22)
[2017-08-16] MEDS: NEO/POLY/HC EAR SUSP 10ML EACH EAR SCH ×2 (08:23→20:37)
[2017-08-16] MEDS: TACROLIMUS 1 MG CAPSULE PO SCH ×2 (08:23→09:00)
[2017-08-16] MEDS: MULTIVITAMIN 1 TABLET PO SCH (08:23)
[2017-08-16] MEDS: SODIUM CHLORIDE NASAL SPRAY 45ML BOTTLE NAS SCH ×2 (08:23→20:38)
[2017-08-16] MEDS: DOCUSATE 100 MG CAPSULE PO SCH ×2 (08:24→20:41)
[2017-08-16] MEDS: FLUTICASONE NASAL SPRAY 16GM NAS SCH ×2 (08:24→20:38)
[2017-08-16 14:03] VITALS: BP 121/75
[2017-08-16 20:00] VITALS: BP 127/86
[2017-08-16] MEDS ORDERED: TACROLIMUS 0.5 MG CAPSULE PO SCH (21:00)
[2017-08-17 02:00] VITALS: BP 146/89
[2017-08-17] MEDS: ALBUTEROL/IPRATROPIUM 2.5MG/0.5MG, 3 ML HHN SCH ×2 (02:35→08:51)
[2017-08-17] MEDS: HEPARIN 5,000 UNITS/ML, 1ML SQ SCH ×2 (03:04→10:27)
[2017-08-17] MEDS: GUAIFENESIN 200 MG TABLET PO SCH ×2 (05:21→10:21)
[2017-08-17 07:32] VITALS: BP 163/93
[2017-08-17 07:34] LABS: MEAN CORPUSCULAR HGB CONC 32.4 g/dL (33.2-36.2); MEAN CORPUSCULAR VOLUME 83.5 fL (81-97); MEAN PLATELET VOLUME 7.3 fL (7.4-10.4); PLATELET COUNT 230 x10^3/uL (130-400); RED BLOOD COUNT 5.49 x10^6/uL (4.38-5.82); RED CELL DISTRIBUTION WIDTH 16.7 % (9.4-14.8)
[2017-08-17 07:45] LABS: ALBUMIN 3.1 g/dL (3.4-5.0); ANION GAP 7 mmol/L (5-15); CALCIUM 8.7 mg/dL (8.5-10.1); CHLORIDE 107 mmol/L (98-107); CREATININE 1.64 mg/dL (0.7-1.3)
[2017-08-17] MEDS ORDERED: TACR0.5C4 PO (07:49)
[2017-08-17] MEDS ORDERED: TACR1CAP4 PO (07:49)
[2017-08-17] MEDS ORDERED: PRED10TA PO (07:49)
[2017-08-17 08:09] LABS: MD YES
[2017-08-17 08:10] LABS: EOS#(MANUAL) 0.36 x10^3/uL (0.0-0.4); EOS% (MANUAL) 2 % (1-7); LYMPH#(MANUAL) 0.54 x10^3/uL (1-3.4); LYMPHS% (MANUAL) 3 % (22-44); MONOS#(MANUAL) 0.54 x10^3/uL (0.3-2.7); MONOS% (MANUAL) 3 % (2-9); MYELOCYTES# (MANUAL) 0.18 x10^3/uL (0-0); MYELOCYTES% (MANUAL) 1 % (0-0); SEG#(MANUAL) 16.47 x10^3/uL (1.8-6.8); SEGS% (MANUAL) 91 % (42-75)
[2017-08-17 08:11] LABS: <RBC MORPHOLOGY> NORMAL
[2017-08-17 08:13] LABS: <PLATELET ESTIMATE> ADEQUATE; <PLT MORPHOLOGY> NORMAL PLT MORPH
[2017-08-17] MEDS: NEO/POLY/HC EAR SUSP 10ML EACH EAR SCH ×2 (09:00→10:15)
[2017-08-17] MEDS ORDERED: PANTOPROZOLE 40MG TABLET PO SCH (09:00)
[2017-08-17] MEDS: MULTIVITAMIN 1 TABLET PO SCH (10:14)
[2017-08-17] MEDS: TACROLIMUS 1 MG CAPSULE PO SCH (10:14)
[2017-08-17] MEDS: CHOLECALCIFEROL 1,000 UNIT TABLET PO SCH (10:14)
[2017-08-17] MEDS: CETIRIZINE 10 MG TABLET PO SCH (10:15)
[2017-08-17] MEDS: LOSARTAN 25MG TABLET PO SCH (10:15)
[2017-08-17] MEDS: SODIUM CHLORIDE NASAL SPRAY 45ML BOTTLE NAS SCH (10:15)
[2017-08-17] MEDS: DOCUSATE 100 MG CAPSULE PO SCH (10:15)
[2017-08-17] MEDS: FLUTICASONE NASAL SPRAY 16GM NAS SCH (10:15)
[2017-08-17] MEDS: FUROSEMIDE 40 MG/4 ML IV SCH (10:16)
[2017-08-17] MEDS: ASPIRIN 81 MG TABLET EC PO SCH (10:26)
[2017-08-17 13:06] VITALS: BP 123/74
== END 2017-08-17 15:30 | disposition home or self-care (01) | DRG 189 ==
LOC: ED 07:34 → EDIP 09:40 → 3NE 10:59 → 4WST 14:21 → CCU 08-09 09:21 → 4WST 08-09 17:48 → DCLOUNGE 08-17 15:10
PROVIDERS: ADMIT Internal Medicine; ATTEND Internal Medicine
PROC: 4A09X5Z Measurement of Respiratory Flow, External Approach (ICD-10-PCS; principal; 2017-08-08)
PROC: 4A0 Measurement and Monitoring, Physiological Systems, Measurement (ICD-10-PCS; 2017-08-08)
PROC: 5A09357 Assistance with Respiratory Ventilation, Less than 24 Consecutive Hours, Continuous Positive Airway Pressure (ICD-10-PCS; 2017-08-11)
DX: J96.01 Acute respiratory failure with hypoxia (principal); J38.6 Stenosis of larynx; Z93.0 Tracheostomy status; I13.11 Hypertensive heart and chronic kidney disease without heart failure, with stage 5 chronic kidney disease, or end stage renal disease; E66.01 Morbid (severe) obesity due to excess calories; E87.70 Fluid overload, unspecified; E83.42 Hypomagnesemia; N18.6 End stage renal disease; N25.81 Secondary hyperparathyroidism of renal origin; Z94.0 Kidney transplant status; Z68.41 Body mass index [BMI] 40.0-44.9, adult; F41.9 Anxiety disorder, unspecified; K21.9 Gastro-esophageal reflux disease without esophagitis; D64.9 Anemia, unspecified; G47.33 Obstructive sleep apnea (adult) (pediatric); G62.9 Polyneuropathy, unspecified; H66.90 Otitis media, unspecified, unspecified ear; J45.909 Unspecified asthma, uncomplicated; J32.4 Chronic pansinusitis; J20.8 Acute bronchitis due to other specified organisms; R73.9 Hyperglycemia, unspecified; J39.8 Other specified diseases of upper respiratory tract; Z79.899 Other long term (current) drug therapy; Z82.49 Family history of ischemic heart disease and other diseases of the circulatory system; Z99.2 Dependence on renal dialysis; Z79.82 Long term (current) use of aspirin
CPT/HCPCS: 36415; 70490; 71045; 71046; 71250; 76770; 80048; 80197; 81003; 82040; 82570; 83036; 83735; 83880; 84100; 84145; 84156; 84484; 85025; 87070; 87081; 87205; 93005; 93306; 94010; 94640; 94660; 99285; J1644; J1940; J7507; J7517; J7613; J7620; J2920; J3475; J7040; J7512

== ENCOUNTER 2017-09-15 18:45 | Emergency (ER) | payer MEDICARE, OTHER ==
[~2017-09-15] VITALS: Ht 172.7 cm; Wt 124.5 kg
[~2017-09-15 18:45] MED LIST: ASPI-496 PO; CEFD300C37 PO; CHOL10002 PO; DOCU100C33 PO; FURO40TA6 PO; LOSA25TA5 PO; MAGN400T7 PO; MULT1TAB60 PO; MYCO250C4 PO; NEOM10DR37 EACH EAR; PANT40TA3 PO; PRED10TA PO; PRED5TAB PO; TACR0.5C4 PO; TACR1CAP4 PO; [UNRECOGNIZED DRUG - OTHER] EACH EAR
[2017-09-15 19:11] VITALS: BP 120/79
== END 2017-09-15 20:14 | disposition home or self-care (01) ==
LOC: ED 20:08
DX: M79.661 Pain in right lower leg (principal); R60.0 Localized edema; J45.909 Unspecified asthma, uncomplicated; I12.9 Hypertensive chronic kidney disease with stage 1 through stage 4 chronic kidney disease, or unspecified chronic kidney disease; N18.9 Chronic kidney disease, unspecified; Z88.1 Allergy status to other antibiotic agents
CPT/HCPCS: 99284

== ENCOUNTER 2018-02-13 11:16 | Emergency (ER) | payer MEDICARE, OTHER ==
[~2018-02-13] VITALS: Ht 172.7 cm; Wt 98.2 kg
[~2018-02-13 11:16] MED LIST changes: -LOSA25TA5 PO; +LOSA25TA6 PO
[2018-02-13 12:28] LABS: BASOPHILS % (AUTO) 0 % (0-1); EOSINOPHILS # (AUTO) 0.22 x10^3/uL (0-0.4); EOSINOPHILS % (AUTO) 2 % (1-7); LYMPHOCYTES # (AUTO) 0.83 x10^3/uL (1-3.4); LYMPHOCYTES % (AUTO) 7 % (22-44); MD NO; MEAN CORPUSCULAR HEMOGLOBIN 28.4 pg (27.5-34.5); MEAN CORPUSCULAR HGB CONC 33.9 g/dL (33.2-36.2); MEAN CORPUSCULAR VOLUME 83.8 fL (81-97); MEAN PLATELET VOLUME 7.4 fL (7.4-10.4); MONOCYTES # (AUTO) 0.47 x10^3/uL (0.2-0.8); MONOCYTES % (AUTO) 4 % (2-9); NEUTROPHILS # (AUTO) 10.24 x10^3/uL (1.8-6.8); NEUTROPHILS % (AUTO) 87 % (42-75); PLATELET COUNT 323 x10^3/uL (130-400); RED BLOOD COUNT 5.37 x10^6/uL (4.38-5.82); RED CELL DISTRIBUTION WIDTH 14.6 % (9.4-14.8)
[2018-02-13 12:38] LABS: ALBUMIN 3.8 g/dL (3.4-5.0); ANION GAP 6 mmol/L (5-15); CHLORIDE 110 mmol/L (98-107)
[2018-02-13 12:44] LABS: ALANINE AMINOTRANSFERASE 21 U/L (12-78); ALKALINE PHOSPHATASE 105 U/L (45-117); BILIRUBIN,TOTAL 0.4 mg/dL (0.2-1.0); CREATININE 1.67 mg/dL (0.7-1.3); TOTAL PROTEIN 7.3 g/dL (6.4-8.2)
[2018-02-13 13:22] VITALS: BP 117/74
== END 2018-02-13 13:48 | disposition home or self-care (01) ==
LOC: ED 13:40
DX: G62.9 Polyneuropathy, unspecified (principal); N18.6 End stage renal disease; I12.0 Hypertensive chronic kidney disease with stage 5 chronic kidney disease or end stage renal disease; J45.909 Unspecified asthma, uncomplicated; Z99.2 Dependence on renal dialysis; Z94.0 Kidney transplant status
CPT/HCPCS: 36415; 72110; 80053; 83880; 85025; 93970; 99285

== ENCOUNTER → 2018-07-11 | Outpatient (CLI) | payer OTHER, MEDICARE ==
[~2018-07-11] MED LIST changes: +LOSA25TA25 PO; -LOSA25TA6 PO
[2018-07-11 12:43] LABS: BASOPHILS # (AUTO) 0.04 x10^3/uL (0-0.1); BASOPHILS % (AUTO) 1 % (0-1); EOSINOPHILS # (AUTO) 0.29 x10^3/uL (0-0.4); EOSINOPHILS % (AUTO) 3 % (1-7); LYMPHOCYTES # (AUTO) 1.09 x10^3/uL (1-3.4); LYMPHOCYTES % (AUTO) 11 % (22-44); MD NO; MEAN CORPUSCULAR HEMOGLOBIN 29.3 pg (27.5-34.5); MEAN CORPUSCULAR HGB CONC 34.1 g/dL (33.2-36.2); MEAN CORPUSCULAR VOLUME 85.9 fL (81-97); MEAN PLATELET VOLUME 8.2 fL (7.4-10.4); MONOCYTES # (AUTO) 0.72 x10^3/uL (0.2-0.8); MONOCYTES % (AUTO) 8 % (2-9); NEUTROPHILS # (AUTO) 7.39 x10^3/uL (1.8-6.8); NEUTROPHILS % (AUTO) 78 % (42-75); PLATELET COUNT 314 x10^3/uL (130-400); RED BLOOD COUNT 5.21 x10^6/uL (4.38-5.82); RED CELL DISTRIBUTION WIDTH 14.5 % (9.4-14.8)
[2018-07-11 13:00] LABS: CHLORIDE 112 mmol/L (98-107)
[2018-07-11 13:27] LABS: ALANINE AMINOTRANSFERASE 21 U/L (12-78); ALKALINE PHOSPHATASE 115 U/L (45-117); BILIRUBIN,TOTAL 0.6 mg/dL (0.2-1.0); CALCIUM 8.8 mg/dL (8.5-10.1); CHOLESTEROL, TOTAL 171 mg/dL (140-239); CREATININE 1.65 mg/dL (0.7-1.3); HDL CHOLESTEROL (DIRECT) 34 mg/dL (40-60); TOTAL PROTEIN 7.3 g/dL (6.4-8.2); TRIGLYCERIDES 130 mg/dL (50-200); VLDL CHOLESTEROL 26 mg/dL (0-25)
[2018-07-11 13:28] LABS: HDL CHOL % 20 % (26-37); LDL CHOLESTEROL,CALCULATED 111 mg/dL (54-169); LDL/HDL RATIO 3.3 (0.5-3.0)
[2018-07-11 13:30] LABS: ANION GAP 6 mmol/L (5-15)
== END | disposition home or self-care (01) ==
LOC: CFH 07:25
PROVIDERS: ATTEND Family Medicine
DX: I10 Essential (primary) hypertension (principal); R53.83 Other fatigue; Z94.0 Kidney transplant status
CPT/HCPCS: 36415; 80053; 80061; 84443; 85025

== ENCOUNTER 2018-07-15 12:43 | Emergency (ER) | payer OTHER, MEDICARE ==
[~2018-07-15] VITALS: Ht 172.7 cm; Wt 124.5 kg
[2018-07-15 13:35] LABS: RAPID INFLUENZA A Negative (Negative); RAPID INFLUENZA B Negative (Negative)
[2018-07-15 13:37] LABS: MEAN CORPUSCULAR HEMOGLOBIN 28.5 pg (27.5-34.5); MEAN CORPUSCULAR HGB CONC 33.7 g/dL (33.2-36.2); MEAN CORPUSCULAR VOLUME 84.5 fL (81-97); MEAN PLATELET VOLUME 7.5 fL (7.4-10.4); PLATELET COUNT 339 x10^3/uL (130-400); RED BLOOD COUNT 5.42 x10^6/uL (4.38-5.82); RED CELL DISTRIBUTION WIDTH 13.8 % (9.4-14.8)
[2018-07-15 13:39] LABS: ALBUMIN 4.3 g/dL (3.4-5.0); ANION GAP 6 mmol/L (5-15); CHLORIDE 110 mmol/L (98-107)
[2018-07-15 13:44] LABS: CREATININE 1.67 mg/dL (0.7-1.3); TROPONIN I < 0.015 ng/mL (0.000-0.045)
[2018-07-15 13:58] LABS: BASOPHILS # (AUTO) 0.01 x10^3/uL (0-0.1); BASOPHILS % (AUTO) 0 % (0-1); EOSINOPHILS # (AUTO) 0.13 x10^3/uL (0-0.4); EOSINOPHILS % (AUTO) 1 % (1-7); LYMPHOCYTES # (AUTO) 0.68 x10^3/uL (1-3.4); LYMPHOCYTES % (AUTO) 5 % (22-44); MD SCAN; MONOCYTES % (AUTO) 4 % (2-9); NEUTROPHILS # (AUTO) 12.23 x10^3/uL (1.8-6.8); NEUTROPHILS % (AUTO) 90 % (42-75)
--- NOTE | 2018-07-15 16:41 | NUR ---
TO ROOM FROM LOBBY. NAD.
--- NOTE | 2018-07-15 16:56 | NUR ---
PT AMBULATED TO ROOM WITH STEADY GAIT. PT REPORTS COUGH, JORDAN, SOB, CP SINCE WEDNESDAY. PT STATED THAT HE HAD A RENAL TRANSPLANT TWO YEARS AGO. PT IS ALERT, ORIENTED, WITH NAD. PT IS CONNECTED TO THE MONITOR. CALL LIGHT WITHIN REACH.
[2018-07-15 18:03] VITALS: BP 112/77
--- NOTE | 2018-07-15 18:09 | NUR ---
Patient given discharge instructions and they have confirmed that they understand the instructions. Patient ambulatory with steady gait.
== END 2018-07-15 18:11 | disposition home or self-care (01) ==
LOC: ED 18:00
DX: J20.8 Acute bronchitis due to other specified organisms (principal); B97.89 Other viral agents as the cause of diseases classified elsewhere; D89.9 Disorder involving the immune mechanism, unspecified; I12.0 Hypertensive chronic kidney disease with stage 5 chronic kidney disease or end stage renal disease; N18.6 End stage renal disease; Z99.2 Dependence on renal dialysis
CPT/HCPCS: 36415; 71045; 80048; 82040; 84484; 85025; 87400; 93005; 99284

== ENCOUNTER 2018-09-16 13:17 | Emergency (ER) | payer OTHER, MEDICARE ==
[~2018-09-16] VITALS: Ht 172.7 cm; Wt 125.4 kg
[2018-09-16 13:24] VITALS: BP 129/78
== END 2018-09-16 14:27 | disposition home or self-care (01) ==
LOC: ED 13:55
DX: M79.662 Pain in left lower leg (principal); I10 Essential (primary) hypertension
CPT/HCPCS: 99284

== ENCOUNTER 2018-10-10 10:13 | Emergency (ER) | payer MEDICARE, OTHER ==
[~2018-10-10] VITALS: Ht 172.7 cm; Wt 124.0 kg
[2018-10-10 10:15] VITALS: BP 123/83
[2018-10-10] MEDS ORDERED: TACR1CAP4 PO (10:38)
[2018-10-10] MEDS ORDERED: ALBUTEROL/IPRATROPIUM 2.5MG/0.5MG, 3 ML ONE (10:57)
[2018-10-10] MEDS ORDERED: ALBUTEROL/IPRATROPIUM 2.5MG/0.5MG, 3 ML NPPB ONE (11:00)
--- NOTE | 2018-10-10 11:39 | NUR ---
Patient given discharge instructions and they have confirmed that they understand the instructions. Patient ambulatory with steady gait. Pt left with all personal belongings, d/c paperwork, and prescriptions.
== END 2018-10-10 11:41 | disposition home or self-care (01) ==
LOC: ED 11:35
DX: J06.9 Acute upper respiratory infection, unspecified (principal); Z94.0 Kidney transplant status; J45.909 Unspecified asthma, uncomplicated; I10 Essential (primary) hypertension
CPT/HCPCS: 71046; 94640; 99283; J7620

== ENCOUNTER 2018-10-24 06:53 | Emergency (ER) | payer MEDICARE, OTHER ==
[~2018-10-24] VITALS: Ht 172.7 cm; Wt 126.0 kg
[2018-10-24 07:00] VITALS: BP 122/87
--- NOTE | 2018-10-24 08:37 | NUR ---
PT TO ROOM AT THIS TIME
[2018-10-24 09:16] LABS: BASOPHILS # (AUTO) 0.02 x10^3/uL (0-0.1); BASOPHILS % (AUTO) 0 % (0-1); EOSINOPHILS # (AUTO) 0.29 x10^3/uL (0-0.4); EOSINOPHILS % (AUTO) 3 % (1-7); LYMPHOCYTES # (AUTO) 1.01 x10^3/uL (1-3.4); LYMPHOCYTES % (AUTO) 10 % (22-44); MD NO; MEAN CORPUSCULAR HEMOGLOBIN 28.1 pg (27.5-34.5); MEAN CORPUSCULAR HGB CONC 32.7 g/dL (33.2-36.2); MEAN CORPUSCULAR VOLUME 85.8 fL (81-97); MEAN PLATELET VOLUME 7.3 fL (7.4-10.4); MONOCYTES # (AUTO) 0.77 x10^3/uL (0.2-0.8); MONOCYTES % (AUTO) 8 % (2-9); NEUTROPHILS # (AUTO) 7.79 x10^3/uL (1.8-6.8); NEUTROPHILS % (AUTO) 79 % (42-75); PLATELET COUNT 332 x10^3/uL (130-400); RED BLOOD COUNT 5.26 x10^6/uL (4.38-5.82); RED CELL DISTRIBUTION WIDTH 14.4 % (9.4-14.8)
[2018-10-24 09:29] LABS: ANION GAP 5 mmol/L (5-15); CHLORIDE 111 mmol/L (98-107)
[2018-10-24 09:30] LABS: CREATININE 1.83 mg/dL (0.7-1.3)
== END 2018-10-24 10:37 | disposition home or self-care (01) ==
LOC: ED 09:09
DX: J20.9 Acute bronchitis, unspecified (principal); J06.9 Acute upper respiratory infection, unspecified; I10 Essential (primary) hypertension
CPT/HCPCS: 36415; 71046; 80048; 85025; 99284

== ENCOUNTER → 2018-10-31 | Outpatient (CLI) | payer MEDICARE, OTHER ==
[2018-10-31 12:43] LABS: BASOPHILS # (AUTO) 0.02 x10^3/uL (0-0.1); BASOPHILS % (AUTO) 0 % (0-1); EOSINOPHILS # (AUTO) 0.31 x10^3/uL (0-0.4); EOSINOPHILS % (AUTO) 3 % (1-7); LYMPHOCYTES % (AUTO) 13 % (22-44); MD NO; MEAN CORPUSCULAR VOLUME 87.9 fL (81-97); MONOCYTES # (AUTO) 0.78 x10^3/uL (0.2-0.8); MONOCYTES % (AUTO) 8 % (2-9); NEUTROPHILS # (AUTO) 7.63 x10^3/uL (1.8-6.8); NEUTROPHILS % (AUTO) 76 % (42-75); PLATELET COUNT 309 x10^3/uL (130-400); RED BLOOD COUNT 5.18 x10^6/uL (4.38-5.82); RED CELL DISTRIBUTION WIDTH 14.1 % (9.4-14.8)
[2018-10-31 13:01] LABS: CHLORIDE 108 mmol/L (98-107)
[2018-10-31 13:09] LABS: HEMOGLOBIN A1C 5.8 % (4.2-6.3)
[2018-10-31 13:21] LABS: ALANINE AMINOTRANSFERASE 21 U/L (12-78); ALBUMIN 3.9 g/dL (3.4-5.0); ALKALINE PHOSPHATASE 121 U/L (45-117); ANION GAP 9 mmol/L (5-15); BILIRUBIN,TOTAL 0.5 mg/dL (0.2-1.0); CALCIUM 8.9 mg/dL (8.5-10.1); CHOL/HDL RATIO 4.6; CHOLESTEROL, TOTAL 166 mg/dL (140-239); CREATININE 1.89 mg/dL (0.7-1.3); HDL CHOL % 22 % (26-37); HDL CHOLESTEROL (DIRECT) 36 mg/dL (40-60); LDL CHOLESTEROL,CALCULATED 99 mg/dL (54-169); LDL/HDL RATIO 2.8 (0.5-3.0); TOTAL PROTEIN 7.1 g/dL (6.4-8.2); TRIGLYCERIDES 157 mg/dL (50-200); VLDL CHOLESTEROL 31 mg/dL (0-25)
== END | disposition home or self-care (01) ==
LOC: CFH 07:03
PROVIDERS: ATTEND Family Medicine
DX: E78.2 Mixed hyperlipidemia (principal); R53.83 Other fatigue; R73.01 Impaired fasting glucose; Z94.0 Kidney transplant status
CPT/HCPCS: 36415; 80053; 80061; 83036; 83880; 84403; 84443; 85025

== ENCOUNTER 2019-04-22 17:35 | Emergency (ER) | payer MEDICARE, OTHER ==
[~2019-04-22] VITALS: Ht 172.7 cm; Wt 125.9 kg
[~2019-04-22 17:35] MED LIST changes: -MAGN400T7 PO; +MAGN400T9 PO
[2019-04-22 17:41] VITALS: BP 129/85
--- NOTE | 2019-04-22 18:30 | NUR ---
TASK RN, COVERING MEAL BREAK. PT COMFORTABLE AT THIS TIME, NAD. CALL LIGHT WITHIN REACH. XR RESULT BACK, PT FOR RECHECK.
== END 2019-04-22 19:00 | disposition home or self-care (01) ==
LOC: ED 18:54
DX: J20.8 Acute bronchitis due to other specified organisms (principal); J45.909 Unspecified asthma, uncomplicated; M79.10 Myalgia, unspecified site; J02.9 Acute pharyngitis, unspecified
CPT/HCPCS: 71046; 99283

== ENCOUNTER → 2019-05-19 | Outpatient (CLI) | payer MEDICARE, OTHER ==
[2019-05-19 13:27] LABS: BASOPHILS # (AUTO) 0.02 x10^3/uL (0-0.1); BASOPHILS % (AUTO) 0 % (0-1); EOSINOPHILS # (AUTO) 0.38 x10^3/uL (0-0.4); EOSINOPHILS % (AUTO) 4 % (1-7); LYMPHOCYTES % (AUTO) 9 % (22-44); MD NO; MEAN CORPUSCULAR HEMOGLOBIN 28.6 pg (27.5-34.5); MEAN CORPUSCULAR HGB CONC 32.7 g/dL (33.2-36.2); MEAN CORPUSCULAR VOLUME 87.4 fL (81-97); MEAN PLATELET VOLUME 7.6 fL (7.4-10.4); MONOCYTES # (AUTO) 0.71 x10^3/uL (0.2-0.8); MONOCYTES % (AUTO) 7 % (2-9); NEUTROPHILS # (AUTO) 8.19 x10^3/uL (1.8-6.8); NEUTROPHILS % (AUTO) 80 % (42-75); PLATELET COUNT 307 x10^3/uL (130-400); RED BLOOD COUNT 5.35 x10^6/uL (4.38-5.82); RED CELL DISTRIBUTION WIDTH 14.5 % (9.4-14.8)
[2019-05-19 13:59] LABS: CHLORIDE 110 mmol/L (98-107)
[2019-05-19 14:10] LABS: ALANINE AMINOTRANSFERASE 18 U/L (12-78); ALBUMIN 3.9 g/dL (3.4-5.0); ALKALINE PHOSPHATASE 103 U/L (45-117); ANION GAP 7 mmol/L (5-15); BILIRUBIN,TOTAL 0.5 mg/dL (0.2-1.0); CALCIUM 9.4 mg/dL (8.5-10.1); CHOL/HDL RATIO 5.1; CHOLESTEROL, TOTAL 189 mg/dL (140-239); CREATININE 1.65 mg/dL (0.7-1.3); HDL CHOL % 20 % (26-37); HDL CHOLESTEROL (DIRECT) 37 mg/dL (40-60); LDL CHOLESTEROL,CALCULATED 125 mg/dL (54-169); TOTAL PROTEIN 7.4 g/dL (6.4-8.2); TRIGLYCERIDES 137 mg/dL (50-200); VLDL CHOLESTEROL 27 mg/dL (0-25)
[2019-05-19 14:11] LABS: LDL/HDL RATIO 3.4 (0.5-3.0)
== END | disposition home or self-care (01) ==
LOC: CFH 11:14
PROVIDERS: ATTEND Nurse Practitioner Primary Care
DX: N18.3 Chronic kidney disease, stage 3 (moderate) (principal); E78.1 Pure hyperglyceridemia; R73.02 Impaired glucose tolerance (oral); R74.8 Abnormal levels of other serum enzymes; R53.83 Other fatigue
CPT/HCPCS: 36415; 80053; 80061; 83036; 85025

== ENCOUNTER 2020-02-05 07:08 | Outpatient (CLI) | payer MEDICARE, OTHER ==
[~2020-02-05 07:08] MED LIST changes: +MULT-449 PO; -MULT1TAB60 PO; -TACR1CAP4 PO; +TACR1CAP5 PO
[2020-02-05 10:33] LABS: HCT (SEDRATE) 46.1 % (39.2-51.8)
[2020-02-05 10:34] LABS: BASOPHILS # (AUTO) 0.03 x10^3/uL (0-0.1); BASOPHILS % (AUTO) 0 % (0-1); EOSINOPHILS # (AUTO) 0.16 x10^3/uL (0-0.4); EOSINOPHILS % (AUTO) 2 % (1-7); LYMPHOCYTES # (AUTO) 1.23 x10^3/uL (1-3.4); LYMPHOCYTES % (AUTO) 12 % (22-44); MD NO; MEAN CORPUSCULAR HEMOGLOBIN 28.3 pg (27.5-34.5); MEAN CORPUSCULAR HGB CONC 32.2 g/dL (33.2-36.2); MEAN PLATELET VOLUME 7.9 fL (7.4-10.4); MONOCYTES # (AUTO) 0.75 x10^3/uL (0.2-0.8); MONOCYTES % (AUTO) 7 % (2-9); NEUTROPHILS # (AUTO) 7.92 x10^3/uL (1.8-6.8); NEUTROPHILS % (AUTO) 79 % (42-75); PLATELET COUNT 305 x10^3/uL (130-400); RED BLOOD COUNT 5.22 x10^6/uL (4.38-5.82); RED CELL DISTRIBUTION WIDTH 14.5 % (9.4-14.8)
[2020-02-05 10:46] LABS: ALBUMIN 3.8 g/dL (3.4-5.0); ANION GAP 7 mmol/L (5-15); CALCIUM 8.9 mg/dL (8.5-10.1); CHLORIDE 113 mmol/L (98-107)
[2020-02-05 10:58] LABS: ALANINE AMINOTRANSFERASE 19 U/L (12-78); ALKALINE PHOSPHATASE 101 U/L (45-117); BILIRUBIN,TOTAL 0.4 mg/dL (0.2-1.0); CHOL/HDL RATIO 3.6; CHOLESTEROL, TOTAL 151 mg/dL (140-239); CREATININE 1.52 mg/dL (0.7-1.3); HDL CHOL % 28 % (26-37); HDL CHOLESTEROL (DIRECT) 42 mg/dL (40-60)
[2020-02-06 10:44] LABS: LDL CHOLESTEROL,CALCULATED 94 mg/dL (54-169); TRIGLYCERIDES 77 mg/dL (50-200)
[2020-02-06 10:45] LABS: LDL/HDL RATIO 2.2 (0.5-3.0); VLDL CHOLESTEROL 15 mg/dL (0-25)
[2020-02-06 17:23] LABS: ANA SCREEN NEGATIVE (Negative)
== END 2020-02-05 23:59 | disposition home or self-care (01) ==
LOC: CFH 07:08
PROVIDERS: ATTEND Family Medicine
DX: E78.1 Pure hyperglyceridemia (principal); Z00.00 Encounter for general adult medical examination without abnormal findings; M25.50 Pain in unspecified joint; Z94.0 Kidney transplant status
CPT/HCPCS: 36415; 80053; 80061; 82306; 84403; 84443; 85025; 85651; 86038

== ENCOUNTER → 2020-03-21 | Outpatient (CLI) | payer MEDICARE, OTHER | END | disposition home or self-care (01) | LOC: CFH 15:40 | PROVIDERS: ATTEND Family Medicine | DX: M79.661 Pain in right lower leg (principal) ==

== ENCOUNTER 2021-01-11 06:34 | Outpatient (CLI) | payer MEDICARE, OTHER ==
[2021-01-11 07:11] LABS: ALBUMIN 3.7 g/dL (3.4-5.0); ANION GAP 7 mmol/L (5-15); CALCIUM 9.3 mg/dL (8.5-10.1); CHLORIDE 110 mmol/L (98-107)
[2021-01-11 07:16] LABS: BASOPHILS % (AUTO) 1 % (0-1); EOSINOPHILS % (AUTO) 1 % (1-7); LYMPHOCYTES % (AUTO) 12 % (22-44); MEAN CORPUSCULAR HEMOGLOBIN 28.8 pg (27.5-34.5); MEAN CORPUSCULAR HGB CONC 32.9 g/dL (33.2-36.2); MEAN PLATELET VOLUME 7.1 fL (7.4-10.4); MONOCYTES % (AUTO) 8 % (2-9); NEUTROPHILS % (AUTO) 78 % (42-75); PLATELET COUNT 310 x10^3/uL (130-400); RED BLOOD COUNT 5.27 x10^6/uL (4.38-5.82); RED CELL DISTRIBUTION WIDTH 14.4 % (9.4-14.8)
[2021-01-11 07:20] LABS: ALANINE AMINOTRANSFERASE 19 U/L (12-78); ALKALINE PHOSPHATASE 126 U/L (45-117); BILIRUBIN,TOTAL 0.6 mg/dL (0.2-1.0); CHOL/HDL RATIO 3.5; CHOLESTEROL, TOTAL 178 mg/dL (140-239); CREATININE 1.45 mg/dL (0.7-1.3); FREE T4 (FREE THYROXINE) 1.38 ng/dL (0.76-1.46); HDL CHOL % 29 % (26-37); HDL CHOLESTEROL (DIRECT) 51 mg/dL (40-60); LDL CHOLESTEROL,CALCULATED 99 mg/dL (54-169); LDL/HDL RATIO 1.9 (0.5-3.0); TOTAL PROTEIN 7.4 g/dL (6.4-8.2); TRIGLYCERIDES 142 mg/dL (50-200); VLDL CHOLESTEROL 28 mg/dL (0-25)
== END 2021-01-11 23:59 | disposition home or self-care (01) ==
LOC: LAB 06:34
DX: I10 Essential (primary) hypertension (principal); E55.9 Vitamin D deficiency, unspecified; Z00.00 Encounter for general adult medical examination without abnormal findings; E29.1 Testicular hypofunction; R53.83 Other fatigue
CPT/HCPCS: 36415; 80053; 80061; 82306; 84402; 84403; 84439; 84443; 84480; 85025